=== PATIENT | male | born 1955 | race Hispanic/Latino ===

== ENCOUNTER → 2018-11-21 | Day surgery (SDC) | payer OTHER ==
[~2018-11-21] MED LIST: CEFAZOLIN SOD 1 GM/NS 50ML 100 ML IV ONE; DEXAMETHASONE SOD PHOS INJ 4 MG/ML VIAL ONE; EPHEDRINE SULFATE INJ 50 MG/10 ML SYR ONE; EPINEPHRINE 1 MG/ML 30ML VIAL ONE; FENTANYL CITRATE/PF 100MCG/2 ML INJ ONE; HYDRALAZINE HCL 20 MG/ML VIAL ONE; IMIPRAM; IMIPRAMINE HCL50 MG PO; KETOROLAC TROMETHAMINE 30 MG/ML VIAL ONE; LABETALOL HCL 0 ML ONE; LABETALOL HCL 5 MG/ML 20ML VIAL ONE; LIDOCAINE 2% /EPINEPHRINE 20 ML SDV INJ ONE; LIDOCAINE HCL 2% LOCAL INJ 5 ML SDV VIAL INJ ONE; MIDAZOLAM HCL 2 MG/2 ML VIAL ONE; MYRBETRIQ50 MG PO; ONDANSETRON HCL INJ 2MG/ML 2ML 2 MG/ML VIAL ONE; OSTEO BI-FLEX1 EAC2 PO; PROPOFOL IV EMULSION 10 MG/ML 20 ML VIAL ONE; ROCURONIUM BROMIDE 10 MG/ML 5ML VIAL ONE; ROPIVACAINE 0.5% 5 MG/ML 30 ML SDV ONE; SEVOFLURANE INHAL SOLN 250 ML PEN BTL ONE; VITAMIN D2000 UNIT PO; Z.0.ENABLEX15 MG
[2018-11-21 12:24] VITALS: BP 136/84
--- NOTE | 2018-11-23 13:26 | Operative Report ---
DATE OF PROCEDURE: 11/21/2018 SURGEON: Kashif Kohli MD PREOPERATIVE DIAGNOSIS: Right shoulder labral tear. POSTOPERATIVE DIAGNOSES: Right shoulder labral tear, right shoulder synovitis, right shoulder partial rotator cuff tear, right shoulder subacromial bursitis. OPERATIONS AND PROCEDURES PERFORMED: Underwent right shoulder examination under anesthesia, right shoulder arthroscopy, right shoulder arthroscopic debridement of a partial rotator cuff tear, right shoulder arthroscopic debridement of synovitis, right shoulder arthroscopic biceps tenodesis and right shoulder arthroscopic subacromial decompression without acromioplasty. ALARM SIGNALER: ARAVIND Marino. ANESTHESIA: General endotracheal intubation anesthesia as well as a regional block. IV FLUIDS: Per the anesthesia record. BRIEF DESCRIPTION OF THE PATIENT'S OPERATIVE PROCEDURE: Mr. Harp was taken to the operating room, placed in the supine position on the operating room table. Following the induction of general anesthesia and endotracheal intubation, the patient's right shoulder was examined under anesthesia. He was found to have full passive range of motion of the shoulder joint. There was no evidence of instability. There were no mechanical symptoms within the shoulder. The patient's shoulder and upper extremity were prepped and draped in the standard surgical fashion. Standard posterior lateral and anterior portals were created without difficulty. The scope was placed within the shoulder joint atraumatically. Examination of the glenohumeral articulation demonstrated no significant evidence of chondromalacia. There were no loose bodies in the shoulder joint. Examination of the rotator cuff demonstrated a partial-thickness tear of the anterior leading edge of the rotator cuff. A probe was placed within the shoulder joint and examination of the rotator cuff injury demonstrated that encompassed less than 50% of the insertion site of the rotator cuff tissue. Examination of biceps tendon found no tearing. There was however a superior labral tear with compromise of the biceps anchor. There was also diffuse synovitis within the shoulder joint. A shaver was placed in the shoulder joint. The synovitis was debrided. The partial rotator cuff injury was also debrided at this time. The rotator interval was debrided and a biceps tenodesis was undertaken. Sutures were shuttled through the rotator interval capturing the biceps tendon. The biceps tendon was then released from its insertion into the superior labrum and glenoid. The shoulder was inflated with sterile normal saline. The scope was placed in subacromial space and significant bursal inflammation was encountered. A lateral portal was created from an outside in technique. A shaver was placed in the subacromial space and a bursectomy was performed. The bursal surface of the rotator cuff was in good condition. The sutures for the biceps tenodesis were identified in the subacromial space and these were tied firmly over the rotator interval. The shoulder was inflated with sterile normal saline. All portal sites were closed and sterile dressings were applied. The patient was provided a shoulder immobilizer, awakened, and taken to the postanesthesia care unit in stable condition. MD KARISSA Torrez/GER /[id number]
== END | disposition home or self-care (01) ==
LOC: OR 05:48
PROVIDERS: ATTEND Specialist
DX: S43.431A Superior glenoid labrum lesion of right shoulder, initial encounter (principal); S46.091A Other injury of muscle(s) and tendon(s) of the rotator cuff of right shoulder, initial encounter; Z85.46 Personal history of malignant neoplasm of prostate; Z87.891 Personal history of nicotine dependence; Z01.810 Encounter for preprocedural cardiovascular examination; M65.811 Other synovitis and tenosynovitis, right shoulder
CPT/HCPCS: 29827; 29828; 29999; 93005; J0360; J0690; J1100; J1885; J2001 ×2; J2250; J2405; J2704; J2795; J3010; J3490

== ENCOUNTER 2019-04-12 12:58 | Outpatient (RCR) | payer OTHER ==
[~2019-04-12 12:58] MED LIST changes: -CEFAZOLIN SOD 1 GM/NS 50ML 100 ML IV ONE; -DEXAMETHASONE SOD PHOS INJ 4 MG/ML VIAL ONE; -EPHEDRINE SULFATE INJ 50 MG/10 ML SYR ONE; -EPINEPHRINE 1 MG/ML 30ML VIAL ONE; -FENTANYL CITRATE/PF 100MCG/2 ML INJ ONE; -HYDRALAZINE HCL 20 MG/ML VIAL ONE; -KETOROLAC TROMETHAMINE 30 MG/ML VIAL ONE; -LABETALOL HCL 0 ML ONE; -LABETALOL HCL 5 MG/ML 20ML VIAL ONE; -LIDOCAINE 2% /EPINEPHRINE 20 ML SDV INJ ONE; -LIDOCAINE HCL 2% LOCAL INJ 5 ML SDV VIAL INJ ONE; -MIDAZOLAM HCL 2 MG/2 ML VIAL ONE; -ONDANSETRON HCL INJ 2MG/ML 2ML 2 MG/ML VIAL ONE; -PROPOFOL IV EMULSION 10 MG/ML 20 ML VIAL ONE; -ROCURONIUM BROMIDE 10 MG/ML 5ML VIAL ONE; -ROPIVACAINE 0.5% 5 MG/ML 30 ML SDV ONE; -SEVOFLURANE INHAL SOLN 250 ML PEN BTL ONE
== END 2019-04-13 ==
LOC: PT 12:58
PROVIDERS: ATTEND Specialist
DX: S43.431A Superior glenoid labrum lesion of right shoulder, initial encounter (principal); M75.101 Unspecified rotator cuff tear or rupture of right shoulder, not specified as traumatic
CPT/HCPCS: 97139

== ENCOUNTER 2019-05-13 12:58 | Outpatient (RCR) | payer OTHER | END 2019-05-14 | LOC: PT 12:58 | PROVIDERS: ATTEND Specialist | DX: S43.431A Superior glenoid labrum lesion of right shoulder, initial encounter (principal); M75.41 Impingement syndrome of right shoulder; M62.81 Muscle weakness (generalized) | CPT/HCPCS: 97139 ==

== ENCOUNTER → 2022-08-06 | Day surgery (SDC) | payer BC, MEDICARE ==
[2022-08-03 08:39] LABS: BASOPHILS % 0.8 % (0.0-1.0); EOSINOPHILS # (AUTO) 0.2 (0.0-0.4); HEMATOCRIT 46.4 % (38.2-49.6); HEMOGLOBIN 15.9 g/dL (14.0-18.0); LYMPHOCYTES # (AUTO) 1.2 (1.0-3.2); LYMPHOCYTES % 22.6 % (18.0-39.1); MEAN CORPUSCULAR HEMOGLOBIN 30.2 pg (28-32); MEAN CORPUSCULAR HGB CONC 34.3 g/dL (31-35); MEAN CORPUSCULAR VOLUME 88.2 fL (81-99); MONOCYTES # (AUTO) 0.4 (0.2-0.8); MONOCYTES % 8.3 % (4.4-11.3); NEUTROPHILS # (AUTO) 3.4 (2.1-6.9); NEUTROPHILS % 63.9 % (38.7-80.0); PLATELET COUNT 208 x10e3/uL (140-360); RED BLOOD COUNT 5.26 x10e6/uL (4.3-5.7); RED CELL DISTRIBUTION WIDTH 13.2 % (11.7-14.4)
[~2022-08-06] MED LIST changes: +FENTANYL CITRATE/PF 100MCG/2 ML INJ ONE; +HYOSCYAMINE SULFATE 0.5 MG/ML INJ ONE; +LACTATED RINGER'S 1,000 ML ONE; +MIDAZOLAM HCL 2 MG/2 ML VIAL ONE; +PROPOFOL IV EMULSION 10 MG/ML 20 ML VIAL ONE
[2022-08-06 09:38] VITALS: TEMP 98
[2022-08-06 10:00] VITALS: BP 120/83; PULSE 82; RESP 18; O2SAT 95
== END | disposition home or self-care (01) ==
LOC: OR 06:33
PROVIDERS: ATTEND Internal Medicine Gastroenterology
DX: Z12.11 Encounter for screening for malignant neoplasm of colon (principal); K63.5 Polyp of colon; K57.30 Diverticulosis of large intestine without perforation or abscess without bleeding; K64.8 Other hemorrhoids; C61 Malignant neoplasm of prostate; Z01.810 Encounter for preprocedural cardiovascular examination; Z01.812 Encounter for preprocedural laboratory examination
CPT/HCPCS: 36415; 45380; 45385; 85025; 93005; J1980; J2250; J2704; J3010; J7121; 45378